=== PATIENT | male | born 1975 | race African-American/Black ===

== ENCOUNTER 2017-12-25 06:49 | Observation (INO) ==
[2017-12-25] MEDS ORDERED: ASPIRIN 325 MG TABLET PO STA (07:13)
[2017-12-25 07:19] LABS: Basophils # 0.1 10*3/uL (0.0-0.2); Basophils % 0.6 % (0.0-0.8); Eosinophils # 0.5 10*3/uL (0.0-0.87); Eosinophils % 2.8 % (0.00-10.9); Immature Granulocytes % 0.7 %; Immature Granulocytes Absolute 0.11 #; Lymphocytes # 3.4 10*3/uL (1.4-4.0); Lymphocytes % 20.6 % (21.2-54.2); Mean Corpuscular HGB Conc 36.4 GM/DL (32-36); Mean Corpuscular Hemoglobin 31 PG (27-34); Mean Corpuscular Volume 84.8 FL (87-102); Mean Platelet Volume 10.1 FL (9.6-12.0); Monocytes # 2.7 10*3/uL (0.11-0.8); Monocytes % 16.6 % (1.7-12.7); NRBC # 0.24 10*3/uL; Neutrophils # 9.6 10*3/uL (1.4-7.4); Neutrophils % 58.7 % (38.7-73.9); Platelet Count 384 T/CUMM (130-400); Red Blood Count 3.89 MC/CUMM (3.8-5.5); Red Cell Distribution Width 14.6 % (9.3-17.3); White Blood Count 16.3 T/CUMM (4-12)
[2017-12-25 07:30] LABS: INR 0.9; PT Patient Result 9.8 SECS; Partial Thromboplastin Time 25.2 SECS (0-40)
[2017-12-25 07:37] LABS: Troponin I Only < 0.015 NG/ML (0.00-0.045)
[2017-12-25 07:42] LABS: Band Neutrophils 1 % (0-10); Eosinophils 3 % (0-10); Hypochromasia 1+; Lymphocytes 15 % (20-55); Microcytosis 1+; Nucleated Red Blood Cells 2 (0-5); Segmented Neutrophils 69 % (50-85); Total Cells Counted 100
[2017-12-25 07:43] LABS: Polychromasia Slight; Target Cells Slight
[2017-12-25 07:44] LABS: Pappenheimer Bodies Slight; Platelet Estimate Normal
[2017-12-25 07:45] LABS: Albumin 3.9 G/DL (3.4-5.0); Bilirubin,Total 0.9 MG/DL (0.2-1.0); Calcium 9.1 MG/DL (8.5-10.1); Osmolality,Calculated 279.4 MOS/KG (273-304); Potassium 4.2 MMOL/L (3.5-5.1); Total Protein 7.9 G/DL (6.4-8.3)
[2017-12-25] MEDS ORDERED: ONDANSETRON 4 MG/2 ML VIAL IV PRN (09:34)
[2017-12-25] MEDS ORDERED: guaiFENesin/DM ER 600-30 MG TABLET PO PRN (09:34)
[2017-12-25] MEDS ORDERED: NICOTINE 21 MG/24 HR PATCH TRANSDERM PRN (09:34)
[2017-12-25] MEDS ORDERED: ACETAMINOPHEN 325 MG TABLET PO PRN (09:34)
[2017-12-25] MEDS ORDERED: diphenhydrAMINE CAP 25 MG CAPSULE PO PRN (09:34)
[2017-12-25] MEDS ORDERED: PANTOPRAZOLE 40 MG TABLET PO SCH (10:00)
[2017-12-25] MEDS ORDERED: ENOXAPARIN 40 MG/0.4 ML SYRINGE SUBCUT SCH (10:00)
[2017-12-25 10:03] LABS: Apearance,Urine CLEAR (Clear); Bilirubin,Urine Negative (Negative); Blood, Urine Negative (Negative); Glucose,Urine (UA) Negative (Negative); Ketones,Urine Negative (Negative); Mucus,Urine Occasional /LPF (Occasional); Nitrite,Urine Negative (Negative); Protein,Urine Negative; Urine Color Straw (Yellow); Urine Specific Gravity 1.009 (1.001-1.035); Urine Urobilinogen < 2.0 EU/DL (0.2-1.0); WBC,Urine <1 /HPF (0-6)
[2017-12-25 12:36] LABS: Barbiturates Screen,Urine Negative (Negative); Benzodiazepines Screen,Urine Negative (Negative); Cannabinoid Screen,Urine Positive (Negative); Opiate Screen,Urine Negative (Negative); Phencyclidine Screen,Urine Negative (Negative)
[2017-12-25 16:17] VITALS: BP 116/79
== END 2017-12-25 16:01 | disposition home or self-care (01) ==
LOC: N.EDINP 06:49 → N.ED 06:49 → N.EDINP 12:38 → N.TELES 12:46
PROVIDERS: ADMIT Internal Medicine; ATTEND Internal Medicine